=== PATIENT | female | born 1975 | race Caucasian/White ===

== ENCOUNTER 2022-09-13 08:50 | Emergency (ER) | payer OTHER ==
[2022-09-13 11:28] VITALS: BP 150/82; PULSE 64
== END 2022-09-13 11:42 | disposition home or self-care (01) ==
LOC: JD.ED 08:50
DX: M79.661 Pain in right lower leg (principal); E78.00 Pure hypercholesterolemia, unspecified; I10 Essential (primary) hypertension; E66.9 Obesity, unspecified; Z68.42 Body mass index [BMI] 45.0-49.9, adult; Z79.899 Other long term (current) drug therapy
CPT/HCPCS: 36415; 85379; 85610; 85730; 93971-26-RT; 93971-RT; 99283; 99284

== ENCOUNTER 2024-07-06 08:34 | Day surgery (SDC) | payer OTHER ==
[~2024-07-06 08:34] MED LIST: Sodium Chloride 0.9% 10 ML Syringe FLUSH PRN; Sodium Chloride 0.9% 10 ML Syringe FLUSH SCH
[2024-07-06] MEDS: Lactated Ringers 1,000 ML IV SCH (09:15)
[2024-07-06] MEDS ORDERED: Propofol 200 MG/20 ML SDV ONE (09:21)
[2024-07-06] MEDS ORDERED: Lidocaine 1% 4 ML ONE (09:21)
[2024-07-06 12:00] VITALS: BP 138/78; PULSE 70
== END 2024-07-06 11:20 | disposition home or self-care (01) ==
LOC: JD.SDS 08:34
PROVIDERS: ATTEND Surgery
DX: Z12.11 Encounter for screening for malignant neoplasm of colon (principal); I10 Essential (primary) hypertension; K21.9 Gastro-esophageal reflux disease without esophagitis; E78.2 Mixed hyperlipidemia; E11.9 Type 2 diabetes mellitus without complications; Z79.84 Long term (current) use of oral hypoglycemic drugs; Z79.899 Other long term (current) drug therapy
CPT/HCPCS: 45378; J2704; J7120; J3490

== ENCOUNTER 2024-09-19 19:45 | Emergency (ER) | payer OTHER ==
[2024-09-19] MEDS ORDERED: Sodium Chloride 0.9% 10 ML Syringe FLUSH PRN ×2 (20:12→20:21)
[2024-09-19] MEDS ORDERED: Iopamidol 612 MG/ML 100 ML Bottle IVPUSH ONE (20:21)
[2024-09-19 21:07] LABS: A/G RATIO 0.8 (1-2); ALBUMIN 3.6 g/dl (3.4-5.0); ANION GAP 13.7 (5-15); BILIRUBIN TOTAL 1.2 mg/dL (0.2-1.0); CALCIUM 9.6 mg/dL (8.5-10.1); EST CRCL DRUG DOSING (CG) 63.01 mL/min
[2024-09-19 21:08] LABS: POTASSIUM,K 3.7 mEq/L (3.5-5.1)
[2024-09-19 21:16] LABS: BASOPHILS PERCENT AUTO 0.2 % (0.0-1.0); EOSINOPHILS ABSOLUTE AUTO 0.2 K/mm3 (0.0-0.4); EOSINOPHILS PERCENT AUTO 1.8 % (0.0-6.0); HEMATOCRIT 41.7 % (37.0-47.0); HEMOGLOBIN 13.6 gm/dl (12.0-16.0); IMMATURE GRAN ABSOLUTE AUTO 0.02 K/mm3 (0.00-0.05); IMMATURE GRAN PERCENT AUTO 0.2 % (0.0-0.4); LYMPHOCYTES ABSOLUTE AUTO 2.3 K/mm3 (1.0-4.8); LYMPHOCYTES PERCENT AUTO 23.5 % (24.0-44.0); MEAN CORPUSCULAR HEMOGLOBIN 29.4 pg (28.0-32.0); MEAN CORPUSCULAR HGB CONC 32.6 g/dl (32.0-36.0); MEAN CORPUSCULAR VOLUME 90.3 fl (83.0-99.0); MONOCYTES ABSOLUTE AUTO 0.9 K/mm3 (0.0-0.8); NEUTROPHILS ABSOLUTE AUTO 6.3 K/mm3 (1.8-7.7); NEUTROPHILS PERCENT AUTO 65.3 % (41.0-71.0); PLATELET COUNT,PLT 272 K/mm3 (150-400); RED BLOOD CELL COUNT 4.62 M/mm3 (4.10-5.30); WHITE BLOOD CELL COUNT,WBC 9.57 K/mm3 (3.9-11.3)
[2024-09-19] MEDS: HYDROmorphone 1 MG/ML Syringe IVPUSH ONE (21:31)
[2024-09-19] MEDS: Sodium Chloride 0.9% 1,000 ML IV ONE (21:31)
[2024-09-19 23:23] VITALS: BP 150/72; PULSE 71
== END 2024-09-19 23:22 | disposition home or self-care (01) ==
LOC: JD.ED 19:45
DX: G89.18 Other acute postprocedural pain (principal); J02.9 Acute pharyngitis, unspecified; I10 Essential (primary) hypertension; E78.00 Pure hypercholesterolemia, unspecified; E66.9 Obesity, unspecified; Z79.899 Other long term (current) drug therapy; Z68.42 Body mass index [BMI] 45.0-49.9, adult
CPT/HCPCS: 36415; 70491; 80053; 84703; 85025; 96361; 96374; 99284; J1171; J7030